=== PATIENT | female | born 1970 | race Caucasian/White ===

== ENCOUNTER 2017-06-04 12:07 | Day surgery (SDC) | payer OTHER ==
[~2017-06-04] VITALS: Ht 149.9 cm; Wt 79.1 kg
[~2017-06-04 12:07] MED LIST: ALBU.083IS; ALBU4; ALBU90OI INH; ALBU90OI6; ALBU90OI61; ALPRAZOLAM; AZIT250 PO; AZIT500 PO; BENZ100A; BENZ100A PO; BIRTH CONTROL PILL; BUDE6HFA; BUDE6HFA INH; CALCIUM WITH D; Cipro500 MG PO; ESTR2 PO; FEXO180; FLUSAL2505; FLUSAL2505 IH; FLUSAL5005; HYDACE5 PO; IBUP800; IPRAIS NEB; LORA.5 PO; MEDR150I; MELA3 PO; META800 PO; MONT10T; MONT10T PO; MULVITMINA; NAPR500 PO; NAPR500EC; NAPR550 PO; OMEG1CAP30; OXYACE5T PO; PANT40; PARO20; PRED10 PO; PRED20 PO; PROACE100 PO; PROCODE120 PO; PROM25 PO; Percocet 5-3251 EACH PO; RANI150
[2017-06-04] MEDS ORDERED: PANT40 (13:08)
== END 2017-06-04 14:44 | disposition home or self-care (01) ==
LOC: ORSCSDS 12:07
PROVIDERS: Internal Medicine Gastroenterology
PROC: 0DB68ZX Excision of Stomach, Via Natural or Artificial Opening Endoscopic, Diagnostic (ICD-10-PCS; principal; 2017-06-04 14:15)
DX: K21.9 Gastro-esophageal reflux disease without esophagitis (principal); K29.80 Duodenitis without bleeding; K20.9 Esophagitis, unspecified; K29.70 Gastritis, unspecified, without bleeding; J45.909 Unspecified asthma, uncomplicated; Z87.11 Personal history of peptic ulcer disease; Z79.899 Other long term (current) drug therapy
CPT/HCPCS: 88305; 88342; J7120

== ENCOUNTER → 2017-08-18 | Outpatient (CLI) | payer OTHER | END | disposition home or self-care (01) | LOC: LAB SHORT 12:08 → LAB EV 12:08 | DX: J02.9 Acute pharyngitis, unspecified (principal) | CPT/HCPCS: 87070; 87147 ==

== ENCOUNTER → 2018-09-25 | Outpatient (CLI) | payer MEDICARE, OTHER ==
[2018-09-29 14:06] LABS: HPV 16 Negative (Negative); HPV 18 Negative (Negative); HPV OTHER HR TYPES Negative (Negative)
== END | disposition home or self-care (01) ==
LOC: LAB 13:21 → LAB SHORT 13:21
PROVIDERS: Registered Nurse
DX: Z01.411 Encounter for gynecological examination (general) (routine) with abnormal findings (principal); N76.0 Acute vaginitis
CPT/HCPCS: 87070; 87077; 87186; 87205; 87624; G0145

== ENCOUNTER → 2020-12-24 | Outpatient (CLI) | payer MEDICARE, OTHER ==
[2020-12-24 19:52] LABS: Campylobacter Sp Detected (NOT DETECT); Enteroaggregative E. coli-EAEC Not Detected (NOT DETECT); Plesiomonas Shigelloides Not Detected (NOT DETECT); Salmonella Sp Not Detected (NOT DETECT); Vibrio Cholerae Not Detected (NOT DETECT); Vibrio Sp Not Detected (NOT DETECT); Yersinia Enterocolitica Not Detected (NOT DETECT)
[2020-12-24 19:53] LABS: Adenovirus F 40/41 Not Detected (NOT DETECT); Astrovirus Not Detected (NOT DETECT); Cryptosporidium Not Detected (NOT DETECT); Cyclospora Cayetanensis Not Detected (NOT DETECT); E. Coli O157 Detected (NOT DETECT); Entamoeba Histolytica Not Detected (NOT DETECT); Enteropathogenic E. coli-EPEC Not Detected (NOT DETECT); Enterotoxigenic E. coli-ETEC Detected (NOT DETECT); Giardia Lamblia Not Detected (NOT DETECT); Norovirus GI/GII Not Detected (NOT DETECT); Rotavirus A Not Detected (NOT DETECT); Sapovirus Not Detected (NOT DETECT); Shiga Toxin-prod E. coli-STEC Detected (NOT DETECT); Shigella/Enteroin E. coli-EIEC Not Detected (NOT DETECT)
== END | disposition home or self-care (01) ==
LOC: LAB SHORT 17:45 → LAB 17:45
PROVIDERS: General Practice
DX: A06.1 Chronic intestinal amebiasis (principal); R19.7 Diarrhea, unspecified
CPT/HCPCS: 0097U

== ENCOUNTER 2021-04-25 20:47 | Emergency (ER) | payer MEDICARE, OTHER ==
[~2021-04-25] VITALS: Ht 149.9 cm; Wt 75.3 kg
== END 2021-04-25 21:41 | disposition home or self-care (01) ==
LOC: ER 20:47
DX: S80.01XA Contusion of right knee, initial encounter (principal); Z88.0 Allergy status to penicillin; Z88.2 Allergy status to sulfonamides; Z91.048 Other nonmedicinal substance allergy status; Z91.040 Latex allergy status; Z88.5 Allergy status to narcotic agent; Z88.1 Allergy status to other antibiotic agents; Z88.6 Allergy status to analgesic agent; Z79.899 Other long term (current) drug therapy; W01.0XXA Fall on same level from slipping, tripping and stumbling without subsequent striking against object, initial encounter
CPT/HCPCS: 29505; 73562-RT; 99283-25; A9270

== ENCOUNTER → 2021-12-22 | Outpatient (CLI) | payer MEDICARE, OTHER ==
[2021-12-22 12:19] LABS: BASOPHILS ABSOLUTE AUTO 0.04 K/mm3 (0.00-0.23); BASOPHILS PERCENT AUTO 1 % (0-2); EOSINOPHILS ABSOLUTE AUTO 0.18 K/mm3 (0.00-0.68); EOSINOPHILS PERCENT AUTO 3 % (0-6); Hematocrit 42.3 % (33.0-51.0); Hemoglobin 13.9 g/dL (11.5-16.0); IMMATURE GRAN ABSOLUTE AUTO 0.04 K/mm3 (0.00-0.10); IMMATURE GRAN PERCENT AUTO 1 % (0-1); LYMPHOCYTES PERCENT AUTO 24 % (21-46); MONOCYTES ABSOLUTE AUTO 0.56 K/mm3 (0.16-1.47); MONOCYTES PERCENT AUTO 8 % (4-13); Mean Corpuscular HGB 28.6 pg (26.0-34.0); Mean Corpuscular HGB Conc 32.9 g/dL (31.5-36.5); Mean Corpuscular Volume 87 fL (80-100); Mean Platelet Volume 9.6 fL (9.1-12.4); NEUTROPHILS ABSOLUTE AUTO 4.31 K/mm3 (1.96-9.15); NEUTROPHILS PERCENT AUTO 64 % (41-73); Platelet Count 359 K/mm3 (150-400); RDW Coefficient Variation 14.9 % (11.7-14.2); RDW Standard Deviation 47.7 fL (35.1-46.3); Red Blood Cell Count 4.86 M/mm3 (3.80-5.20); White Blood Cell Count 6.73 K/mm3 (4.00-11.30)
[2021-12-22 12:28] LABS: Albumin, Blood 3.7 g/dL (3.4-5.0); Albumin/Globulin Ratio 0.9 (0.8-1.8); Bilirubin, Total 0.8 mg/dL (0.1-1.0); Bun/Creatinine Ratio 13.8 (12.0-20.0); Calcium, Blood 9.5 mg/dL (8.5-10.1); Creatinine, Blood 0.87 mg/dL (0.40-1.00); Globulin, Blood 4.2 g/dL (2.2-4.0); Potassium, Blood 4.1 mmol/L (3.5-5.5); Total Protein, Blood 7.9 g/dL (6.4-8.2)
[2021-12-22 13:12] LABS: International Normalized Ratio 0.96; Prothrombin Time Results 10.1 Sec (9.7-11.5)
== END | disposition home or self-care (01) ==
LOC: LAB SHORT 12:13 → LAB 12:13
PROVIDERS: Chiropractor
DX: R58 Hemorrhage, not elsewhere classified (principal); R82.90 Unspecified abnormal findings in urine
CPT/HCPCS: 80053; 85025; 85610; 87086

== ENCOUNTER → 2022-01-19 | Outpatient (CLI) | payer MEDICARE, OTHER ==
[2022-01-19 12:30] LABS: BASOPHILS ABSOLUTE AUTO 0.03 K/mm3 (0.00-0.23); BASOPHILS PERCENT AUTO 1 % (0-2); EOSINOPHILS ABSOLUTE AUTO 0.17 K/mm3 (0.00-0.68); EOSINOPHILS PERCENT AUTO 3 % (0-6); Hematocrit 41.5 % (33.0-51.0); Hemoglobin 13.5 g/dL (11.5-16.0); IMMATURE GRAN ABSOLUTE AUTO 0.01 K/mm3 (0.00-0.10); IMMATURE GRAN PERCENT AUTO 0 % (0-1); LYMPHOCYTES ABSOLUTE AUTO 1.62 K/mm3 (0.84-5.20); LYMPHOCYTES PERCENT AUTO 29 % (21-46); MONOCYTES PERCENT AUTO 9 % (4-13); Mean Corpuscular HGB 28.2 pg (26.0-34.0); Mean Corpuscular HGB Conc 32.5 g/dL (31.5-36.5); Mean Corpuscular Volume 87 fL (80-100); Mean Platelet Volume 9.2 fL (9.1-12.4); NEUTROPHILS ABSOLUTE AUTO 3.36 K/mm3 (1.96-9.15); NEUTROPHILS PERCENT AUTO 59 % (41-73); Platelet Count 344 K/mm3 (150-400); RDW Coefficient Variation 14.3 % (11.7-14.2); RDW Standard Deviation 45.7 fL (35.1-46.3); Red Blood Cell Count 4.78 M/mm3 (3.80-5.20); White Blood Cell Count 5.69 K/mm3 (4.00-11.30)
[2022-01-19 12:40] LABS: Albumin, Blood 3.5 g/dL (3.4-5.0); Albumin/Globulin Ratio 0.9 (0.8-1.8); Bilirubin, Total 0.5 mg/dL (0.1-1.0); Bun/Creatinine Ratio 21.2 (12.0-20.0); Calcium, Blood 9.1 mg/dL (8.5-10.1); Creatinine, Blood 0.85 mg/dL (0.40-1.00); Potassium, Blood 4.1 mmol/L (3.5-5.5); Total Protein, Blood 7.5 g/dL (6.4-8.2)
== END | disposition home or self-care (01) ==
LOC: LAB 12:24 → LAB SHORT 12:24
PROVIDERS: Physician Assistant Surgical
DX: R10.13 Epigastric pain (principal)
CPT/HCPCS: 80053; 83690; 85025

== ENCOUNTER 2024-04-16 07:50 | Day surgery (SDC) | payer OTHER ==
[2024-04-16] VITALS (8 sets, daily range): BP systolic 92–115; BP diastolic 46–60
[~2024-04-16] VITALS: Ht 149.9 cm; Wt 81.6 kg
[~2024-04-16 07:50] MED LIST changes: +Cyclobenzaprine5 MG PO; +FLUT1DIS2 INH; +FLUT1DIS5 INH; +Lactated Ringer's 1,000 ML IV SCH; +MULTI-VITAMIN1 EAC2 PO; +ONDA4 PO; +PANT40 PO; +TIOT18 INH; +VITAMIN C125 MG PO; +ZYRTEC10 M2 PO
[2024-04-16] MEDS ORDERED: Lactated Ringer's 1,000 ML IV SCH (07:55)
[2024-04-16] MEDS ORDERED: Bupivacaine 0.5% HCl 5 MG/ML 30MLVIAL ONE (09:08)
[2024-04-16] MEDS ORDERED: Dexamethasone Sod Phos 10 MG/ML 1ML VIAL ONE (09:16)
[2024-04-16] MEDS ORDERED: Ketorolac Tromethamine 30mg Vial ONE (09:16)
[2024-04-16] MEDS ORDERED: propofoL 20 ML IV ONE (09:16)
[2024-04-16] MEDS ORDERED: Ondansetron HCl 2 MG / ML 2ML Vial ONE (09:16)
[2024-04-16] MEDS ORDERED: FentaNYL Citrate 50 MCG/ML 2 ML Injection ONE (09:16)
[2024-04-16] MEDS ORDERED: Phenylephrine HCl 100 MCG/ML-NS 10MLSYR (1MG/10ML) ONE (09:30)
[2024-04-16] MEDS ORDERED: Haloperidol Lactate Inj. 5 MG/ML Injection IV PRN (09:50)
[2024-04-16] MEDS ORDERED: Albuterol 2.5 MG/3 ML VIAL INH PRN (09:50)
[2024-04-16] MEDS ORDERED: HYDROmorphone HCl/Pf 1MG SYR IV PRN (09:50)
[2024-04-16] MEDS ORDERED: FentaNYL Citrate 50 MCG/ML 2 ML Injection IV PRN (09:50)
[2024-04-16] MEDS ORDERED: HYDROcodone 5-APAP 325 TAB PO PRN (10:10)
--- NOTE | 2024-04-16 10:52 | NUR ---
DERMABOND IN PLACE, NO DRAINAGE. Discharge instructions reviewed with patient. Patient verbalizes understanding. Copy given to patient to take home. Patient States Post-Procedure ride home has been arranged. Discharged via wheelchair to private car for ride home.
== END 2024-04-16 10:52 | disposition home or self-care (01) ==
LOC: ORSCMMR 07:50 → ORD 09:00 → ORSCMMR 09:00
PROVIDERS: Surgery
PROC: 0JB40ZX Excision of Right Neck Subcutaneous Tissue and Fascia, Open Approach, Diagnostic (ICD-10-PCS; principal; 2024-04-16 09:00)
DX: D17.0 Benign lipomatous neoplasm of skin and subcutaneous tissue of head, face and neck (principal); G47.33 Obstructive sleep apnea (adult) (pediatric); J44.89 Other specified chronic obstructive pulmonary disease; K21.9 Gastro-esophageal reflux disease without esophagitis; F41.9 Anxiety disorder, unspecified; F32.A Depression, unspecified; Z79.899 Other long term (current) drug therapy
CPT/HCPCS: 88304; J1100; J1885; J2371; J2405; J2704; J3010; J7120